=== PATIENT | female | born 1980 | race Caucasian/White ===

== ENCOUNTER → 2024-04-29 | Outpatient (REF) | payer OTHER ==
[~2024-04-29] MED LIST: ACET500C OR; PRENTAB8 PO
[2024-04-29 17:56] LABS: FREE T4 1.3 NG/DL (0.89-1.76); THYROID STIMULATING HORMONE 1.504 uIU/ML (0.55-4.78)
== END ==
LOC: M LABWUC 16:16
PROVIDERS: ATTEND Ophthalmology
DX: Z13.0 Encounter for screening for diseases of the blood and blood-forming organs and certain disorders involving the immune mechanism (principal)